=== PATIENT | male | born 1965 | race African-American/Black ===

== ENCOUNTER 2016-12-08 03:05 | Emergency (ER) | payer SELFPAY ==
[~2016-12-08] VITALS: Ht 180.3 cm; Wt 96.0 kg
[2016-12-08 05:43] VITALS: BP 112/74
== END 2016-12-08 11:46 | disposition home or self-care (01) ==
LOC: ED 11:37
DX: F10.129 Alcohol abuse with intoxication, unspecified (principal)
CPT/HCPCS: 36415; 80307; 99283